=== PATIENT | female | born 1940 | race African-American/Black ===

== ENCOUNTER 2017-07-01 19:28 | Emergency (ER) | payer OTHER ==
[~2017-07-01] VITALS: Ht 152.4 cm; Wt 41.7 kg
[~2017-07-01 19:28] MED LIST: ATACAND32 MG PO; CALCIUM300 MG PO; CRESTOR20 MG PO; [UNRECOGNIZED DRUG - OTHER] IJ
== END 2017-07-01 20:40 | disposition home or self-care (01) ==
LOC: ER 19:28
DX: S13.4XXA Sprain of ligaments of cervical spine, initial encounter (principal); S30.0XXA Contusion of lower back and pelvis, initial encounter; V49.9XXA Car occupant (driver) (passenger) injured in unspecified traffic accident, initial encounter; Y93.89 Activity, other specified; Y92.488 Other paved roadways as the place of occurrence of the external cause; Y99.8 Other external cause status

== ENCOUNTER 2018-07-28 04:54 | Emergency (ER) | payer OTHER ==
[~2018-07-28] VITALS: Ht 149.9 cm; Wt 38.1 kg
[~2018-07-28 04:54] MED LIST changes: +PEPCID40 MG PO; +TOPROL XL25 MG; +ZOFRAN ODT4 MG PO
== END 2018-07-28 13:09 | disposition home or self-care (01) ==
LOC: ER 04:54
DX: K29.60 Other gastritis without bleeding (principal)

== ENCOUNTER 2020-07-01 07:15 | Emergency (ER) | payer OTHER ==
[~2020-07-01] VITALS: Ht 149.9 cm; Wt 39.7 kg
== END 2020-07-01 09:05 | disposition home or self-care (01) ==
LOC: ER 07:15
DX: R68.89 Other general symptoms and signs (principal); F41.1 Generalized anxiety disorder; T49.8X5A Adverse effect of other topical agents, initial encounter; Y92.89 Other specified places as the place of occurrence of the external cause

== ENCOUNTER 2023-03-16 04:05 | Emergency (ER) | payer OTHER ==
[~2023-03-16] VITALS: Ht 149.9 cm; Wt 35.4 kg
== END 2023-03-16 09:11 | disposition home or self-care (01) ==
LOC: ER 04:06
DX: R51.9 Headache, unspecified (principal); Z88.8 Allergy status to other drugs, medicaments and biological substances

== ENCOUNTER 2023-07-17 11:03 | Emergency (ER) | payer OTHER ==
[~2023-07-17] VITALS: Ht 149.9 cm; Wt 37.2 kg
[2023-07-17 12:14] LABS: HEMATOCRIT 37.6 % (36.0-45.00); HEMOGLOBIN 12.6 g/dL (12.0-15.00); MEAN CELL VOLUME 90.5 fL (80.00-100.00); MEAN CORPUSCULAR HEMOGLOBIN 30.3 pg (27.00-32.0); MEAN CORPUSCULAR HGB CONC 33.5 g/dl (32.0-36.0); PLATELET COUNT 219 K/uL (150-450); RED BLOOD COUNT 4.16 M/uL (4.00-6.00); RED CELL DISTRIBUTION WIDTH 14.2 % (11.5-14.5)
[2023-07-17 12:37] LABS: ALBUMIN 4.1 gm/dL (3.4-5.0); BILIRUBIN TOTAL 0.37 mg/dL (0.3-1.2); CALCIUM 9.7 mg/dL (8.5-10.1); CREATININE SERUM 0.8 mg/dL (0.55-1.02); GFR 68.5; GLOBULINA 4.3 G/DL (2.4-3.5); POTASSIUM 4.12 mEq/L (3.5-5.1); TOTAL PROTEIN 8.4 gm/dL (6.4-8.2)
[2023-07-17 12:43] LABS: URINE APPEARANCE Clear; URINE BILIRRUBIN Negative (NEGATIVE); URINE BLOOD Negative; URINE COLOR Yellow; URINE GLUCOSE Negative (NEGATIVE); URINE LEUKOCYTE Negative; URINE NITRATE Negative; URINE PROTEIN Negative (NEGATIVE); URINE UROBILINOGEN 0.2 E.U./dl
[2023-07-17 12:46] LABS: URINE BACTERIA 21.4 uL (0.0-1933); URINE EPITHELIAL CELLS 2.3 uL (0.0-38.8)
[2023-07-17 12:47] LABS: PARTIAL THROMBOPLASTIN TIME 26.2 SECONDS (22.0-34.0); PROTHROMBIN TIME 10.5 SECONDS (9.0-11.5)
[2023-07-17 12:58] LABS: URINE RBC 1.5 uL (0.0-20.8)
[2023-07-17 14:23] LABS: ABG PH 7.464 (7.35-7.45); ABG PO2 118.2 mmHg (80-100); ABG pCO2 31.1 mmHg (35-45); BASE EXCESS -0.8 mmol/l; BICARBONATE 21.9 mmol/l (23-25); SaO2 98.8 %; Tco2 22.8 mmol/l; allen test SATISFACTORY; o2 21 %; puncture site BRADIAL RIGHT
== END 2023-07-17 15:59 | disposition home or self-care (01) ==
LOC: ER 11:03
PROVIDERS: General Practice
DX: R55 Syncope and collapse (principal); R51.9 Headache, unspecified; Z20.822 Contact with and (suspected) exposure to COVID-19; I10 Essential (primary) hypertension; Z88.5 Allergy status to narcotic agent

== ENCOUNTER 2023-08-10 13:06 | Outpatient (CLI) | payer OTHER | END 2023-08-10 13:17 | disposition home or self-care (01) | LOC: MRI 13:06 | PROVIDERS: ATTEND Internal Medicine | DX: R55 Syncope and collapse (principal) | CPT/HCPCS: 70551 ==

== ENCOUNTER 2024-04-15 19:02 | Emergency (ER) | payer OTHER ==
[~2024-04-15] VITALS: Ht 152.4 cm; Wt 37.2 kg
[2024-04-15] MEDS ORDERED: ACETAMINOPHEN 500 MG GEL..CAP PO ONE (20:30)
[2024-04-15] MEDS ORDERED: hydrOXYzine PAMOATE 50 MG CAPSULE PO ONE (20:45)
[2024-04-15 21:01] LABS: HEMATOCRIT 40.1 % (36.0-45.00); HEMOGLOBIN 13.3 g/dL (12.0-15.00); MEAN CELL VOLUME 90.4 fL (80.00-100.00); MEAN CORPUSCULAR HEMOGLOBIN 29.9 pg (27.00-32.0); MEAN CORPUSCULAR HGB CONC 33.1 g/dl (32.0-36.0); PLATELET COUNT 201 K/uL (150-450); RED BLOOD COUNT 4.44 M/uL (4.00-6.00); RED CELL DISTRIBUTION WIDTH 14.2 % (11.5-14.5)
[2024-04-15 21:25] LABS: CALCIUM 10.3 mg/dL (8.5-10.1); CREATININE SERUM 0.74 mg/dL (0.55-1.02); GFR 74.95; POTASSIUM 3.88 mEq/L (3.5-5.1)
[2024-04-15] MEDS ORDERED: METOCLOPRAMIDE HCL 5 MG/ML VIAL IV ONE (23:45)
[2024-04-15] MEDS ORDERED: FAMOTIDINE/PF 20 MG/2 ML VIAL IV ONE (23:45)
[2024-04-15] MEDS ORDERED: KETOROLAC TROMETHAMINE 30 MG VIAL IV ONE (23:45)
[2024-04-15] MEDS ORDERED: MEPERIDINE HCL/PF 50 MG/ML VIAL IM ONE (23:45)
== END 2024-04-16 01:11 | disposition home or self-care (01) ==
LOC: ER 19:02
PROVIDERS: Emergency Medicine
DX: R51.9 Headache, unspecified (principal); F41.8 Other specified anxiety disorders; G30.8 Other Alzheimer's disease; F02.80 Dementia in other diseases classified elsewhere, unspecified severity, without behavioral disturbance, psychotic disturbance, mood disturbance, and anxiety; Z88.6 Allergy status to analgesic agent
CPT/HCPCS: 36415; 70450; 96365; 99284; J1885; J2765; J3490